=== PATIENT | male | born 2005 | race Asian ===

== ENCOUNTER 2023-02-25 17:17 | Emergency (ER) | payer OTHER ==
[~2023-02-25] VITALS: Ht 177.8 cm; Wt 63.6 kg
[2023-02-25 17:35] VITALS: BP 159/82; TEMP 98.6
[2023-02-25 19:17] VITALS: PULSE 71
== END 2023-02-25 19:17 | disposition home or self-care (01) ==
LOC: COL.ER 17:17
DX: S93.601A Unspecified sprain of right foot, initial encounter (principal); X50.1XXA Overexertion from prolonged static or awkward postures, initial encounter; W18.30XA Fall on same level, unspecified, initial encounter; Y93.67 Activity, basketball